=== PATIENT | male | born 1945 | race Caucasian/White ===

== ENCOUNTER 2018-07-13 00:12 | Emergency (ER) | payer MEDICARE, OTHER, SELFPAY ==
[2018-07-13 00:18] VITALS: BP 110/64; PULSE 60; RESP 15; TEMP 36.9; O2SAT 99; BMI 24.4
--- NOTE | 2018-07-13 00:29 | ED_ITS ---
HPI - Wound/Laceration General Chief Complaint: Wound/Laceration Stated Complaint: stomach pain/fell to knees and hit head/laceration Time Seen by Provider: 07/13/18 00:29 Source: patient Mode of arrival: ambulatory Limitations: no limitations History of Present Illness HPI narrative: 72-year-old male who arrived to the emergency department by private vehicle with his . It was reported that several hours ago he was woken by sleep with severe abdominal pain. He states that it was so bad that he was bent over. He was on his hands and knees crawling into the bathroom when he fell forward and hitting the left side of his head on the ground. He did not vomit. He had no diarrhea. His who ate the same thing is him the night prior had no symptoms. He did have a cut on the left forehead. His did call 911 with the patient's stated that he was not going to come to the emergency department by ambulance. They did come by private vehicle. Upon my evaluation patient reported a complete resolution of his abdominal pain. He no longer had any nausea. He did state that he felt very ?tired? Related Data Allergies Allergy/AdvReac Type Severity Reaction Status Date / Time No Known Drug Allergies Allergy Verified 07/13/18 00:18 Review of Systems Constitutional Reports fatigue, Denies fever(s), Denies headache(s) and Reports malaise ENT Ears, Nose, Mouth, and Throat: Denies headache(s) Cardiovascular Denies chest pain and Denies dyspnea Respiratory Denies dyspnea Gastrointestinal Gastrointestinal: Reports abdominal pain, Denies change in stool character, Denies nausea and Denies vomiting Genitourinary Denies dysuria Musculoskeletal Reports myalgias and Denies arthralgias Integumentary/Breasts Comments: Cut to the left side of face Neurologic Denies behavioral changes and Denies headache(s) Psychiatric Denies behavioral changes Endocrine Reports fatigue FORMERLY [facility], 1928–1983 Medical History Patient denies medical problems (Acute) Social History Smoking Status: Unknown if ever smoked Social History Smoking Status: Unknown if ever smoked Exam Initial Vital Signs Initial Vital Signs: Vital Signs Temperature 98.4 F 07/13/18 00:18 Pulse Rate 60 07/13/18 00:18 Respiratory Rate 15 07/13/18 00:18 Blood Pressure 110/64 07/13/18 00:18 Pulse Oximetry 99 07/13/18 00:18 Const General: cooperative, comfortable, well developed, well groomed and No acute distress Orientation: alert and awake HENMS Head: normal to inspection and other (Cut to left side of face) Nose: external nose normal Mouth: oral mucosae normal Eyes Pupils: PERRL EOM: EOM intact bilaterally Resp Effort & Inspection: normal respiratory effort Auscultation: clear to auscultation bilaterally Cardio Rate: regular rate Rhythm: regular rhythm GI Inspection: non-distended Palpation: soft, No firm, No guarding and No tender Skin Other: 1 cm cut to the left side of the forehead just above the eyebrow. Neuro General: alert and awake Cognition: normal cognition Speech: speech normal Extrem General: normal to inspection and capillary refill normal Procedures Laceration Repair Laceration 1: Site: face Side (If applicable): left Size (cm): 1 Description: irregular Depth: simple, single layer Pre-repair: deep structures intact Skin layer closed with: steri-strips Course Orders Ordered: Discontinued Medications Diphtheria/Tetanus/Acell Pertussis (Adacel) 0.5 ml IM .ONCE ONE Stop: 07/13/18 00:31 Last Admin: 07/13/18 00:35 Dose: 0.5 ml Vital Signs - 8 hr 07/13/18 00:18 07/13/18 00:57 Temperature 98.4 F Pulse Rate 60 74 Respiratory Rate 15 18 Blood Pressure 110/64 108/61 Pulse Oximetry 99 99 MDM - Wound/Laceration MDM Narrative Medical decision making narrative: Patient with no abdominal pain at the time of my exam. The cut to his left forehead was very superficial and is closed with Dermabond and Steri-Strips. Will hold on further workup for now. Suspect that his malaise is secondary to the intense pain that he had earlier this evening. I did discuss return precautions and follow-up instructions. He expressed understanding and agreement with plan. Discharge Plan Departure Patient Disposition: Home Clinical Impression: Laceration Abdominal pain Qualifiers: Abdominal location: generalized Qualified Code(s): R10.84 - Generalized abdominal pain Discharge Date/Time: 07/13/18 00:58 Interventions: ED Discharge Assessment Last Done: 07/13/18 00:57 Instructions: Acute Abdominal Pain, DI for Laceration Repair With Dermabond Activity Restrictions/Additional Instructions: You can shower like normal. Do not scrub the area of the cut. Call your primary doctor for follow-up. If your to the emergency department for further evaluation.symptoms worsen please return Referrals: Scooter Lyon MD [Primary Care Provider] -
[2018-07-13] MEDS: TET,DIPH,PERTUSS(ACELL),VAC/PF 0.5 ML SYRINGE IM (00:35)
--- NOTE | 2018-07-13 00:36 | PC.NURSE ---
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 to his left forehead.No loc,no neck pain.
--- NOTE | 2018-07-13 00:40 | PC.NURSE ---
dermabond applied to wound
[2018-07-13 00:57] VITALS: BP 108/61; PULSE 74; RESP 18; O2SAT 99
== END 2018-07-13 00:58 | disposition home or self-care (01) ==
PROVIDERS: Emergency Provider Emergency Medicine; PCP Family Medicine
DX: R10.84 Generalized abdominal pain (principal); S01.81XA Laceration without foreign body of other part of head, initial encounter; Z23 Encounter for immunization
CPT/HCPCS: 90471; 99283; 90715